=== PATIENT | female | born 1990 | race African-American/Black ===

== ENCOUNTER 2023-04-05 10:53 | Emergency (ER) | payer OTHER, SELFPAY ==
[2023-04-05 11:20] VITALS: BP 151/86; PULSE 81; RESP 16; TEMP 36.8; O2SAT 99
--- NOTE | 2023-04-05 11:25 | ED.FEMALEGU ---
HPI - Female Genitourinary General Chief complaint: Urogenital-Female Stated complaint: vaginal issue Time Seen by Provider: 04/05/23 11:25 Source: patient and RN notes reviewed Mode of arrival: ambulatory Limitations: no limitations History of Present Illness HPI Narrative: 33-year-old female presented for complaint of urinary frequency, urgency, bladder pressure, and white vaginal discharge with itching over the past few days. She also endorses increased thirst and increased urination for a few weeks. Drinks about 2 64oz jugs of water daily. Denies changes in products or sexual partners. Denies any concern for STD. Denies abdominal pain, flank pain, hematuria, n/v/d/f/c. LMP 03/16/23. Related Data Home Medications Medication Instructions Recorded Confirmed cetirizine 10 mg tablet (Zyrtec) 10 mg PO DAILY 04/05/23 04/05/23 Allergies Allergy/AdvReac Type Severity Reaction Status Date / Time No Known Allergies Allergy Verified 04/05/23 11:11 Review of Systems Review of Systems: CONSTITUTIONAL: Denies body aches, fever, chills, or sweats. CARDIOVASCULAR: Denies chest pain, palpitations, or edema. RESPIRATORY: Denies cough or dyspnea. GASTROINTESTINAL: Denies abdominal pain, nausea, vomiting, or diarrhea. GENITOURINARY: Reports vaginal discharge urinary frequency, urgency, denies dysuria, hematuria, flank pain SKIN: Denies rash, itching, or wounds. MUSCULOSKELETAL: Denies back pain or myalgia. [facility] Past Medical History Medical History (Updated 04/05/23 @ 12:46 by Peyton Greenfield, ROBERT) Pre-diabetes Comments At time of signature, I have reviewed and agree with nursing past medical, surgical, social and family history unless otherwise noted. Please see nursing chart for further information. There is no relevant family history pertinent to the presenting complaint Exam Narrative: GENERAL: Well-appearing ENT: Mucous membranes pink and moist. NECK: Normal AROM. Supple. CHEST: No respiratory distress. Clear to auscultation. HEART: Regular rate and rhythm. ABDOMEN: Soft, nontender, nondistended, normal active bowel sounds. No CVA tenderness. Pt provided photo of vaginal discharge, appears thin and white. MUSCULOSKELETAL: No bony tenderness. SKIN: Warm, dry, no rash. NEURO: No focal deficits. Alert and oriented x3. Gait steady. PSYCH: Normal affect. Course Course Emergency Course: Patient is aware of diagnosis, understands and agrees to treatment plan. Anticipatory guidance given. Patient agrees to follow-up as directed and is aware of reasons to seek care at the emergency department. Portions of this record may have been created with voice recognition software Level of Care: Express Care Visit Vital Signs Vital signs: Vital Signs Temperature 98.2 F 04/05/23 11:20 Pulse Rate 81 04/05/23 11:20 Respiratory Rate 16 04/05/23 11:20 Blood Pressure 151/86 H 04/05/23 11:20 Pulse Oximetry 99 04/05/23 11:20 Oxygen Delivery Room Air 04/05/23 11:20 Temperature 98.2 F 04/05/23 11:20 Pulse Rate 81 04/05/23 11:20 Respiratory Rate 16 04/05/23 11:20 Blood Pressure 151/86 H 04/05/23 11:20 Pulse Oximetry 99 04/05/23 11:20 Oxygen Delivery Room Air 04/05/23 11:20 Reviewed MDM - Female Genitourinary MDM Narrative Medical decision making narrative: Pt presented for urinary frequency. Result of urine shows glu2+, Ketones 3+; reviewed with pt. States she was told to take metformin several years ago, which she has stopped. Pt has not f/u with pcp regarding BS. Also admitted to increased thirst. BS 372. contacted her PCP Erika Woodard, who stated pt has not been seen in almost 4 years and no appt available today. Will send to ER. Pt is agreeable. Differential Diagnosis Differential diagnosis: Likely urinary tract infection, bacterial vaginosis, trichomoniasis, cervicitis, vaginitis and cystitis Lab Data Labs: Lab Results 04/05/23 Range/Units
[2023-04-05 11:42] LABS: Glucose Point of Care 372 mg/dl (65-105)
== END 2023-04-05 12:26 | disposition short-term general hospital (02) ==
PROVIDERS: Emergency Provider Nurse Practitioner Family; PCP Physician Assistant
DX: R73.9 Hyperglycemia, unspecified (principal); R73.03 Prediabetes
CPT/HCPCS: 81003; 82948; 99202; G0463